=== PATIENT | female | born 1950 | race Caucasian/White ===

== ENCOUNTER 2016-08-18 05:58 | Day surgery (SDC) | payer MEDICARE, OTHER ==
[~2016-08-18 05:58] MED LIST: ACTONEL; ASPIRIN81 M1 PO; BENEFIBER1 EAC1 PO; BYSTOLIC; BYSTOLIC2.5 M1 PO; CHOLESTEROL; CHOLESTEROL MED; LUTEIN20 M2 PO; MULTIVITAMINS1 EAC6 PO; OMEGA 3 FISH O1 EACH PO; PRAVASTATIN SOD40 M1 PO; RANITIDINE HCL150 M3 PO; ROBITUSSIN LON118 M1 PO; VITAMIN D; VITAMIN D31000 UNI3 PO
--- NOTE | 2016-08-18 21:07 | NUR ---
VN ROUNDING-PATIENT STATES PAIN IS STAYING CONTROLLED AND WE DISCUSSED SOME NAVEED HOME DRAIN TEACHING. SHE SAID SHE TRIED TODAY BUT WAS A LITTLE UNCOMFORTABLE THAT SHE MIGHT BREAK THE TUBING. GAVE HER SOME REASSURANCE AND EDUCATIONS AND ENCOURAGED HER TO TRY AGAIN TOMORROW AND THAT THE NURSE CAN SHOW HER HOW TO DO IT AT DISCHARGE ALSO. PATIENT HAD NO FURTHER QUESTIONS OR CONCERNS AT THIS TIME. CHART WAS REVIEWED
[2016-08-19] MEDS ORDERED: ULTRAM50 M1 PO (03:46)
[2016-08-19] MEDS ORDERED: TYLENOL325 M2 PO (03:47)
[2016-08-19] MEDS ORDERED: CIPRO500 M2 PO (03:49)
[2016-08-19] MEDS ORDERED: MOTRIN IB200 M1 PO (11:27)
[2016-08-19] MEDS ORDERED: TYLENOL WITH C1 EACH PO (11:28)
[2016-08-19] MEDS ORDERED: MILK OF MAGNESIA PO (11:29)
[2016-08-19] MEDS ORDERED: TYLENOL EXTRA500 M1 PO (11:29)
== END 2016-08-19 13:05 ==
LOC: SRG 05:58 → SHSA 09:49 → ORW 09:55 → PACU 11:31 → 5WD 12:40
PROC: 0HTT0ZZ Resection of Right Breast, Open Approach (ICD-10-PCS; principal; 2016-08-18)
PROC: 07B50ZX Excision of Right Axillary Lymphatic, Open Approach, Diagnostic (ICD-10-PCS; 2016-08-18)
PROC: 0HX5XZZ Transfer Chest Skin, External Approach (ICD-10-PCS; 2016-08-18)
DX: C50.911 Malignant neoplasm of unspecified site of right female breast (principal); D05.11 Intraductal carcinoma in situ of right breast; I10 Essential (primary) hypertension; G43.909 Migraine, unspecified, not intractable, without status migrainosus; K21.9 Gastro-esophageal reflux disease without esophagitis; I34.1 Nonrheumatic mitral (valve) prolapse; E78.00 Pure hypercholesterolemia, unspecified; Z79.82 Long term (current) use of aspirin; Z79.899 Other long term (current) drug therapy; Z88.0 Allergy status to penicillin; Z88.8 Allergy status to other drugs, medicaments and biological substances; Z91.030 Bee allergy status; Z80.3 Family history of malignant neoplasm of breast; Z80.41 Family history of malignant neoplasm of ovary; Z90.49 Acquired absence of other specified parts of digestive tract; Z90.89 Acquired absence of other organs; Z98.890 Other specified postprocedural states
CPT/HCPCS: A9520; J0690; J1885; J2250; J3010; Q9968

== ENCOUNTER 2016-08-22 15:38 | Emergency (ER) | payer MEDICARE, OTHER ==
[~2016-08-22 15:38] MED LIST changes: +CIPRO500 M2 PO; +MILK OF MAGNESIA PO; +MOTRIN IB200 M1 PO; +TYLENOL EXTRA500 M1 PO; +TYLENOL WITH C1 EACH PO; +TYLENOL325 M2 PO; +ULTRAM50 M1 PO
== END 2016-08-22 16:40 ==
LOC: EDMED 15:38
DX: T81.89XA Other complications of procedures, not elsewhere classified, initial encounter (principal); Z85.3 Personal history of malignant neoplasm of breast; Z90.11 Acquired absence of right breast and nipple